=== PATIENT | male | born 1950 | race Caucasian/White ===

== ENCOUNTER 2018-03-22 09:21 | Day surgery (SDC) | payer MEDICARE, BC ==
[~2018-03-22 09:21] MED LIST: MIDAZOLAM 2 MG/2 ML SOL ONE
[2018-03-22] MEDS ORDERED: ACETAZOLAMIDE 250 MG PO ONE (09:34)
[2018-03-22] MEDS: PHENYLEPHRINE HCL 10% OPHTHAL SOL ONE ×2 (09:48→10:10)
[2018-03-22] MEDS: PROPARACAINE HCL 0.5% OPHTHALMIC SOL ONE ×3 (09:48→11:18)
[2018-03-22] MEDS: CYCLOPENTOLATE 1% SOL ONE ×2 (09:49→10:11)
[2018-03-22] MEDS: KETOROLAC 0.5% OPTH 60 DROP SOL ONE ×2 (09:49→10:11)
[2018-03-22 09:58] VITALS: RESP 20
[2018-03-22] MEDS ORDERED: BSS 500 ML 500 ML IR ONE (11:12)
[2018-03-22] MEDS ORDERED: POVIDONE IODINE 5% SOL ONE (11:12)
[2018-03-22] MEDS ORDERED: LIDOCAINE HCL 1% MPF 30 SOL ONE (11:12)
[2018-03-22] MEDS ORDERED: MIDAZOLAM 2 MG/2 ML SOL ONE (11:25)
[2018-03-22 11:57] VITALS: BP 113/70; PULSE 58; TEMP 98.5; O2SAT 96
== END 2018-03-22 12:10 | disposition home or self-care (01) | DRG 125 ==
LOC: SURG 09:21
PROVIDERS: ATTEND Ophthalmology
DX: H25.9 Unspecified age-related cataract (principal)
CPT/HCPCS: J2250; A9270-GY; J2001

== ENCOUNTER 2019-01-24 19:44 | Inpatient (IN) | payer MEDICARE, BC ==
[2019-01-24 20:25] LABS: BASOPHILS % (AUTO) 1 % (0-3); EOSINOPHILS % (AUTO) 0 % (0-9); HEMATOCRIT 35 % (39-53); HEMOGLOBIN 11.9 gm/dl (13.5-17.7); LYMPHOCYTES % (AUTO) 9.1 % (10-50); MEAN CORPUSCULAR HEMOGLOBIN 33.7 pg (27.0-32.0); MEAN CORPUSCULAR HGB CONC 34.1 gm/dl (32.0-36.0); NEUTROPHILS % (AUTO) 81.4 % (37-80)
[2019-01-24 20:31] LABS: MEAN CORPUSCULAR VOLUME 99 fL (80-100)
[2019-01-24] MEDS ORDERED: SODIUM CHLORIDE 0.9% 1000ML 1,000 ML IV ONE (20:35)
[2019-01-24 20:36] LABS: CALCIUM 8.1 mg/dl (8.5-10.1); CARBON DIOXIDE 28.7 mEq/L (21-32); CREATININE 1.83 mg/dl (0.80-1.30); POTASSIUM 3.2 mMol/L (3.5-5.1)
[2019-01-24] MEDS ORDERED: ONDANSETRON HCL 4 MG/2 ML SOL IV ONE (20:36)
[2019-01-24] MEDS ORDERED: AZITHROMYCIN 500 MG PDS IV SCH (20:45)
[2019-01-24] MEDS ORDERED: ONDANSETRON HCL 4 MG/2 ML SOL ONE (20:48)
[2019-01-24] MEDS ORDERED: AZITHROMYCIN 500 MG PDS IV ONE (20:48)
[2019-01-24] MEDS ORDERED: POTASSIUM CHLORIDE 2 MEQ/ML 40 MEQ, LIDOCAINE HCL 1% MDV 2 ML in SODIUM CHLORIDE 0.9% 5... IV ONE (21:24)
[2019-01-24 22:24] LABS: APPEARANCE,URINE Slightly Cloudy; BILIRUBIN,URINE NEGATIVE (NEGATIVE); COLOR,URINE Dark yellow; GLUCOSE, URINE (UA) NEGATIVE (NEGATIVE); KETONES,URINE NEGATIVE (NEGATIVE); LEUKOCYTE ESTERASE ,URINE NEGATIVE (NEGATIVE); NITRATE,URINE NEGATIVE (NEGATIVE); OCCULT BLOOD,URINE TRACE INTACT (NEG-TRACE); PH,URINE 5.5; UROBILINOGEN,URINE 0.2 (0.2-1.0 EU)
[2019-01-24 23:03] LABS: BACTERIA NEGATIVE (< 1+); CRYSTALS NEGATIVE (0-3 AVE/HPF); EPITHELIAL CELLS 0-3 (SQUAMOUS); RBC,URINE 0-2 (0-3AV/HPF); WBC,URINE 0-1 (0-5AV/HPF)
[2019-01-25] MEDS ORDERED: DIPHENHYDRAMINE 25 MG CAP PO PRN (00:03)
[2019-01-25] MEDS ORDERED: ONDANSETRON 4 MG ODT BU PRN (00:12)
[2019-01-25] MEDS ORDERED: LORAZEPAM 0.5 MG TAB PO PRN (00:16)
[2019-01-25] MEDS ORDERED: HYDROMORPHONE HYDROCHLORIDE 2 MG TAB PO PRN (00:17)
[2019-01-25] MEDS ORDERED: PROCHLORPERAZINE MALEATE 5 MG TAB PO PRN (00:22)
[2019-01-25] MEDS ORDERED: ACETAMINOPHEN 650 MG SUP PR PRN (01:11)
[2019-01-25] MEDS ORDERED: POTASSIUM CHLORIDE 2 MEQ/ML SOL IV ONE (01:17)
[2019-01-25] MEDS ORDERED: LIDOCAINE HCL 1% MPF 30 SOL ONE (01:18)
[2019-01-25] MEDS ORDERED: ACETAMINOPHEN 325 MG ONE (02:23)
[2019-01-25] MEDS ORDERED: ACETAMINOPHEN 325 MG PO PRN (02:26)
[2019-01-25] MEDS ORDERED: OXYCODONE HYDROCHLORIDE 10 MG TER ONE (03:33)
[2019-01-25] MEDS: OXYCODONE 15 MG PO SCH ×2 (03:35→12:41)
[2019-01-25] MEDS ORDERED: OMEPRAZOLE 20 MG CAPSULE PO SCH (07:00)
[2019-01-25] MEDS ORDERED: POTASSIUM CHLORIDE 10 MEQ TER PO SCH (09:00)
[2019-01-25] MEDS ORDERED: [UNRECOGNIZED DRUG - OTHER] PO SCH (09:00)
[2019-01-25] MEDS ORDERED: AZITHROMYCIN 250 MG TAB PO SCH (09:00)
[2019-01-25] MEDS ORDERED: FUROSEMIDE 40 MG TAB PO SCH (09:00)
[2019-01-25] MEDS ORDERED: BUPROPION PO SCH (09:00)
[2019-01-25] MEDS ORDERED: VITAMIN D3 PO SCH (09:00)
[2019-01-25] MEDS ORDERED: CALCIUM CARBONATE PO SCH (09:00)
[2019-01-25] MEDS ORDERED: PANTOPRAZOLE SODIUM 40 MG ECT PO SCH (09:00)
[2019-01-25] MEDS ORDERED: ACYCLOVIR 400 MG TAB PO SCH (09:00)
[2019-01-25 11:27] LABS: CALCIUM 7.9 mg/dl (8.5-10.1); CARBON DIOXIDE 29.7 mEq/L (21-32); CREATININE 1.51 mg/dl (0.80-1.30); INR 4.97 (0.86-1.12); POTASSIUM 3.4 mMol/L (3.5-5.1)
[2019-01-25 11:37] LABS: HEMATOCRIT 32 % (39-53); HEMOGLOBIN 10.9 gm/dl (13.5-17.7); MEAN CORPUSCULAR HEMOGLOBIN 33.4 pg (27.0-32.0); MEAN CORPUSCULAR HGB CONC 33.5 gm/dl (32.0-36.0)
[2019-01-25 11:38] VITALS: BP 114/76; PULSE 72; RESP 18; TEMP 98.4
[2019-01-25 12:07] LABS: MEAN CORPUSCULAR VOLUME 100 fL (80-100)
[2019-01-25 12:08] LABS: BAND NEUTROPHILS % (MANUAL) 8 %; BASOPHILS % (MANUAL) 1 % (0-3); EOSINOPHILS % (MANUAL) 0 % (0-9); LYMPHOCYTES % (MANUAL) 7 % (10-50); MONOCYTES % (MANUAL) 15 % (0-12); NEUTROPHILS % (MANUAL) 69 % (37-80)
[2019-01-25 12:09] LABS: ANISOCYTOSIS SLIGHT AMT; BURR CELLS OCCASIONAL; PLATELET MORPHOLOGY COMMENT SL DECREASE; POIKILOCYTOSIS SLIGHT AMT
[2019-01-25 12:10] LABS: METAMYELOCYTES%(MANUAL) 0; MYELOCYTES%(MANUAL) 0; PROMYELOCYTES % 0
[2019-01-25 12:11] LABS: BLAST CELLS% 0
[2019-01-25 12:12] LABS: OTHER CELLS # 0
[2019-01-25 13:04] VITALS: O2SAT 95
[2019-01-25] MEDS ORDERED: Non-Formulary Medication MISC (Bupropion Xl 150 Mg 150 MG) PO SCH (21:00)
[2019-01-25] MEDS ORDERED: GABAPENTIN 100 MG CAP PO SCH (21:00)
== END 2019-01-25 13:05 | disposition home or self-care (01) | DRG 195 ==
LOC: ED 19:44 → ACUTE CARE 22:11
PROVIDERS: ADMIT Family Medicine; ATTEND Family Medicine
DX: J18.1 Lobar pneumonia, unspecified organism (principal); R05 Cough; E87.6 Hypokalemia; R79.89 Other specified abnormal findings of blood chemistry; R11.10 Vomiting, unspecified; R19.7 Diarrhea, unspecified; R06.02 Shortness of breath; D64.9 Anemia, unspecified; E78.6 Lipoprotein deficiency; Z79.01 Long term (current) use of anticoagulants
CPT/HCPCS: 36415; 71046; 80048; 81001; 84132; 85007; 85025; 85027; 85610; 93005; 94760; 96365; 96374; 99070; 99222; 99238; 99285; J0456; J2405; J3480; A9270; A9270-GY; J2001